=== PATIENT | female | born 1935 | race Caucasian/White ===

== ENCOUNTER → 2017-07-02 | Outpatient (CLI) | payer OTHER ==
[~2017-07-02] MED LIST: ASPI-555 PO; CARV3.12 PO; EZET10TA26 PO; FENO145T37 PO; FOLI0.8C PO; FOLI0.8T PO; GLIM4TAB PO; LACT10SO8 PO; LACT1CAP72 PO; PANT40TA25 PO; SITA1TAB2 PO; WHEA1POW2 PO
== END ==
LOC: OIH 16:18
PROVIDERS: ATTEND Physician Assistant Medical
DX: M47.896 Other spondylosis, lumbar region (principal); R19.4 Change in bowel habit
CPT/HCPCS: 74018

== ENCOUNTER 2017-07-20 07:22 | Day surgery (SDC) | payer OTHER ==
[~2017-07-20] VITALS: Ht 165.1 cm; Wt 98.7 kg
[~2017-07-20 07:22] MED LIST changes: -CARV3.12 PO; -EZET10TA26 PO; -FOLI0.8C PO; -FOLI0.8T PO; -GLIM4TAB PO; -LACT10SO8 PO; -LACT1CAP72 PO; -SITA1TAB2 PO; +SODIUM CHLORIDE 0.9% 1000ML 1,000 ML IV ONE
[2017-07-20 08:19] VITALS: BP 139/71
[2017-07-20] MEDS ORDERED: CARV3.12 PO (09:49)
[2017-07-20] MEDS ORDERED: FENO145T37 PO (09:49)
[2017-07-20] MEDS ORDERED: LACT10SO8 PO (09:49)
[2017-07-20] MEDS ORDERED: LACT1CAP72 PO (09:49)
== END 2017-07-20 12:20 | disposition home or self-care (01) ==
LOC: DAH 07:22 → ENDO 07:22
PROVIDERS: ATTEND Internal Medicine
DX: D12.0 Benign neoplasm of cecum (principal); K63.5 Polyp of colon; K57.30 Diverticulosis of large intestine without perforation or abscess without bleeding; E11.9 Type 2 diabetes mellitus without complications; E78.5 Hyperlipidemia, unspecified; I10 Essential (primary) hypertension; Z86.010 Personal history of colon polyps; Z85.038 Personal history of other malignant neoplasm of large intestine; Z95.0 Presence of cardiac pacemaker; Z90.710 Acquired absence of both cervix and uterus; Z90.49 Acquired absence of other specified parts of digestive tract; Z68.35 Body mass index [BMI] 35.0-35.9, adult; Z98.0 Intestinal bypass and anastomosis status
CPT/HCPCS: 45380; 82948; 88305; 93005; A4606; J7030

== ENCOUNTER 2017-08-27 20:25 | Observation (INO) | payer OTHER ==
[~2017-08-27] VITALS: Ht 167.6 cm; Wt 91.6 kg
[~2017-08-27 20:25] MED LIST changes: +CARV3.12 PO; +LACT10SO8 PO; +LACT1CAP72 PO; -SODIUM CHLORIDE 0.9% 1000ML 1,000 ML IV ONE
[2017-08-27] MEDS ORDERED: MORPHINE SULFATE 4 MG/1ML SYG ONE (22:23)
[2017-08-28] MEDS ORDERED: ONDANSETRON HCL MDV 20ML 2 MG/ML VIAL ONE (00:05)
[2017-08-28] MEDS ORDERED: MORPHINE SULFATE 4 MG/1ML SYG ONE ×2 (00:06→14:16)
[2017-08-28 00:36] LABS: BASOPHILS % (AUTO) 0.8 % (0.0-5.0); EOSINOPHILS % (AUTO) 1.8 % (0.0-8.0); HEMATOCRIT 40.2 % (36-48); LYMPHOCYTES % (AUTO) 20.3 % (21.0-51.0); MEAN CORPUSCULAR HEMOGLOBIN 30.5 pg (27.0-33.0); MEAN CORPUSCULAR HGB CONC 33.8 g/dL (32.0-36.0); MEAN CORPUSCULAR VOLUME 90.2 fL (79-99); NEUTROPHILS % (AUTO) 69.1 % (40.0-77.0); PLATELET COUNT (AUTO) 217 K/uL (130-400); RED BLOOD CELL COUNT(AUTO) 4.45 MIL/uL (4.00-5.50); RED CELL DISTRIBUTION WIDTH 14.6 % (11.0-15.5)
[2017-08-28 00:39] LABS: CREATININE 1.1 mg/dL (0.5-1.5); POTASSIUM 3.7 mmol/L (3.5-5.1)
[2017-08-28 00:44] LABS: ALBUMIN 3.5 g/dL (3.5-5.0); BILIRUBIN,TOTAL 1.4 mg/dL (0.2-1.0); TOTAL PROTEIN, SERUM 6.6 g/dL (6.0-8.3)
[2017-08-28 03:00] VITALS: BP_SYST 119; BP_SYST 121; BP_DIAS 58; BP_DIAS 75
[2017-08-28] MEDS ORDERED: MORPHINE SULFATE 2 MG/ML 1ML SYG IVP PRN ×2 (04:00→16:00)
[2017-08-28] MEDS ORDERED: ONDANSETRON HCL MDV 20ML 2 MG/ML VIAL IVP PRN (04:00)
[2017-08-28 04:10] LABS: APPEARANCE,URINE Clear (CLEAR); BILIRUBIN,URINE Negative (NEGATIVE); COLOR,URINE Yellow (YELLOW); GLUCOSE, URINE (UA) Negative (NEGATIVE); KETONES,URINE Negative (NEGATIVE); LEUKOCYTE ESTERASE ,URINE Trace (NEGATIVE); NITRATE,URINE Positive (NEGATIVE); OCCULT BLOOD,URINE Trace (NEGATIVE); PROTEIN,URINE POS 1+ (NEGATIVE)
[2017-08-28 04:24] LABS: HEMATOCRIT 36.9 % (36-48); MEAN CORPUSCULAR HGB CONC 34.5 g/dL (32.0-36.0); MEAN CORPUSCULAR VOLUME 89.9 fL (79-99); PLATELET COUNT (AUTO) 219 K/uL (130-400); RED BLOOD CELL COUNT(AUTO) 4.11 MIL/uL (4.00-5.50); RED CELL DISTRIBUTION WIDTH 14.4 % (11.0-15.5); WHITE BLOOD COUNT (AUTO) 7.1 K/uL (4.8-10.8)
[2017-08-28 04:30] LABS: BACTERIA,URINE Few /HPF (None Seen); MUCUS,URINE Moderate LPF (None Seen); SQUAMOUS EPITHELIAL CELL,UR Moderate /HPF (0-2)
[2017-08-28 05:17] LABS: CREATININE 1.2 mg/dL (0.5-1.5); POTASSIUM 4.2 mmol/L (3.5-5.1)
[2017-08-28] MEDS ORDERED: DEXTROSE 50%-WATER 50 ML DISP.SYRIN IV PRN (06:45)
[2017-08-28] MEDS ORDERED: GLUCAGON 1MG KIT 1 MG ML IM PRN (06:45)
[2017-08-28] MEDS: INSULIN HUMULIN R 100 UNIT/ML 3ML SQ SCH ×3 (07:30→20:53)
[2017-08-28 08:00] VITALS: BP 141/75
[2017-08-28] MEDS: ENOXAPARIN SODIUM 40 MG/0.4 ML SYRINGE SQ SCH (08:45)
[2017-08-28 11:00] VITALS: BP 142/70
[2017-08-28] MEDS ORDERED: HYDROCODONE/ACETAMINOPHEN 5/325 MG TAB PO PRN (14:30)
[2017-08-28] MEDS ORDERED: EZET10TA26 PO (14:35)
[2017-08-28] MEDS ORDERED: SITA1TAB2 PO (14:35)
[2017-08-28] MEDS ORDERED: CARV3.12 PO (14:35)
[2017-08-28] MEDS ORDERED: FOLI0.8C PO (14:35)
[2017-08-28] MEDS: MORPHINE SULFATE 4 MG/1ML SYG IVP PRN (15:35)
[2017-08-28 16:00] VITALS: BP 146/76
[2017-08-28 19:45] VITALS: BP 138/78
[2017-08-28 23:15] VITALS: BP 133/55
[2017-08-29 03:28] VITALS: BP 144/64
[2017-08-29] MEDS: INSULIN HUMULIN R 100 UNIT/ML 3ML SQ SCH ×4 (06:16→21:00)
[2017-08-29 08:00] VITALS: BP 148/70
[2017-08-29] MEDS: METFORMIN HCL PO SCH (09:00)
[2017-08-29] MEDS: SITAGLIPTIN PHOS PO SCH (09:00)
[2017-08-29] MEDS: MORPHINE SULFATE 4 MG/1ML SYG IVP PRN (09:19)
[2017-08-29] MEDS: ENOXAPARIN SODIUM 40 MG/0.4 ML SYRINGE SQ SCH (09:19)
[2017-08-29] MEDS: CARVEDILOL 3.125 MG TABLET PO SCH (09:20)
[2017-08-29] MEDS: EZETIMIBE 10 MG TAB PO SCH (09:20)
[2017-08-29] MEDS: FOLIC ACID 1 MG TABLET PO SCH (09:20)
[2017-08-29] MEDS: PANTOPRAZOLE SODIUM 40 MG TABLET.DR PO SCH (09:21)
[2017-08-29] MEDS: ASPIRIN 81 MG EC TAB PO SCH (09:21)
[2017-08-29 11:00] VITALS: BP 146/75
[2017-08-29] MEDS ORDERED: LACTULOSE 20 GM/30 ML UDCUP PO PRN (14:45)
[2017-08-29 17:01] VITALS: BP 129/67
[2017-08-29 19:00] VITALS: BP 154/67
[2017-08-29] MEDS: LACTULOSE 20 GM/30 ML UDCUP PO SCH (21:04)
[2017-08-30] VITALS: BP 147/62
[2017-08-30] MEDS: MORPHINE SULFATE 4 MG/1ML SYG IVP PRN ×2 (01:14→09:54)
[2017-08-30 04:00] VITALS: BP 122/83
[2017-08-30] MEDS: INSULIN HUMULIN R 100 UNIT/ML 3ML SQ SCH ×2 (06:40→11:30)
[2017-08-30 08:00] VITALS: BP 142/73
[2017-08-30] MEDS: SITAGLIPTIN PHOS PO SCH (09:00)
[2017-08-30] MEDS: METFORMIN HCL PO SCH (09:00)
[2017-08-30] MEDS: ENOXAPARIN SODIUM 40 MG/0.4 ML SYRINGE SQ SCH (10:05)
[2017-08-30] MEDS: EZETIMIBE 10 MG TAB PO SCH (10:06)
[2017-08-30] MEDS: FOLIC ACID 1 MG TABLET PO SCH (10:06)
[2017-08-30] MEDS: LACTULOSE 20 GM/30 ML UDCUP PO SCH (10:06)
[2017-08-30] MEDS: ASPIRIN 81 MG EC TAB PO SCH (10:06)
[2017-08-30] MEDS: PANTOPRAZOLE SODIUM 40 MG TABLET.DR PO SCH (10:06)
[2017-08-30] MEDS: CARVEDILOL 3.125 MG TABLET PO SCH (10:07)
[2017-08-30 11:00] VITALS: BP 103/61
== END 2017-08-30 15:00 ==
LOC: EDH 20:25 → OBSVTOIN 23:57 → EDHIP 23:57 → INTOOBSV 23:57 → 3AH 08-28 01:39
PROVIDERS: ADMIT Internal Medicine; ATTEND Internal Medicine
DX: S32.591A Other specified fracture of right pubis, initial encounter for closed fracture (principal); E11.9 Type 2 diabetes mellitus without complications; N39.0 Urinary tract infection, site not specified; I25.10 Atherosclerotic heart disease of native coronary artery without angina pectoris; E66.9 Obesity, unspecified; E78.5 Hyperlipidemia, unspecified; I95.1 Orthostatic hypotension; I10 Essential (primary) hypertension; W18.30XA Fall on same level, unspecified, initial encounter; Y93.01 Activity, walking, marching and hiking; Y92.89 Other specified places as the place of occurrence of the external cause; Y99.8 Other external cause status; Z90.710 Acquired absence of both cervix and uterus; Z82.49 Family history of ischemic heart disease and other diseases of the circulatory system; Z95.1 Presence of aortocoronary bypass graft; Z87.891 Personal history of nicotine dependence
CPT/HCPCS: 36415; 70450; 72192; 73502; 80053; 81001; 82948 ×8; 83690; 85025; 85027; 93005; 93306; 96372 ×2; 97039 ×5; 97161; 99285; G0378 ×63; G8978; G8979; G8981; G8982; G8983; J1650 ×2; J2270 ×6; 80048

== ENCOUNTER → 2018-05-24 | Outpatient (CLI) | payer OTHER ==
[~2018-05-24] MED LIST changes: +EZET10TA26 PO; +FOLI0.8C PO; +SITA1TAB2 PO
== END | disposition home or self-care (01) ==
LOC: OIH 15:41
PROVIDERS: ATTEND Internal Medicine
DX: J06.9 Acute upper respiratory infection, unspecified (principal); M85.88 Other specified disorders of bone density and structure, other site; M47.814 Spondylosis without myelopathy or radiculopathy, thoracic region
CPT/HCPCS: 71046

== ENCOUNTER 2018-07-06 14:27 | Emergency (ER) | payer OTHER | END 2018-07-06 17:06 | disposition home or self-care (01) | LOC: EDH 14:27 | DX: S20.212A Contusion of left front wall of thorax, initial encounter (principal); S00.31XA Abrasion of nose, initial encounter; E11.9 Type 2 diabetes mellitus without complications; E78.5 Hyperlipidemia, unspecified; I10 Essential (primary) hypertension; Z90.710 Acquired absence of both cervix and uterus; Z87.891 Personal history of nicotine dependence; W18.39XA Other fall on same level, initial encounter; Y93.01 Activity, walking, marching and hiking; Y92.89 Other specified places as the place of occurrence of the external cause; Y99.8 Other external cause status | CPT/HCPCS: 70450; 70486; 71111; 72125; 73030; 93005 ==